=== PATIENT | female | born 1995 | race African-American/Black ===

== ENCOUNTER 2024-07-20 08:16 | Emergency (ER) | payer SELFPAY ==
[~2024-07-20] VITALS: Ht 175.3 cm; Wt 100.0 kg
[2024-07-20 08:22] VITALS: O2SAT 99
[2024-07-20] MEDS ORDERED: AMOX1TAB16 MT (08:55)
[2024-07-20 09:12] VITALS: BP 134/84; PULSE 83; RESP 16; TEMP 36.9; O2SAT 99
== END 2024-07-20 09:15 | disposition home or self-care (01) ==
LOC: ER 08:16
DX: J03.90 Acute tonsillitis, unspecified (principal)
CPT/HCPCS: 99283